=== PATIENT | male | born 1965 | race Caucasian/White ===

== ENCOUNTER → 2022-06-13 | Outpatient (CLI) | payer OTHER ==
--- NOTE | 2022-06-13 15:47 | P.SLEEP ---
History of Present Illness DATE: 06/13/2022 CONSULTATION/NEW PATIENT EVALUATION HISTORY OF PRESENT ILLNESS/SLEEP-WAKE EVALUATION: 56 year old gentleman had been evaluated in the sleep center for possible obstructive sleep apnea hypopnea syndrome. SLEEP SCHEDULE: Usually sleep schedule from 11 PM to 6 AM on weekdays and from 1112 PM until 78 AM on weekend. FALLING ASLEEP: No problems with falling asleep, no TV in bedroom. DURING SLEEP: Patient has loud snoring and wakes up from sleep 2 times. He sleeps on the side and stomach position, prefers not to sleep on the back, feel uncomfortable on the back. No history of hypnogogical hallucinations, sleep paralysis, or cataplexy. DURING THE DAY/WAKE STATE: Patient denies significant sleepiness. [place] sleepiness scale is normal 4. Patient doesn't take naps. PAST MEDICAL HISTORY: Seasonal ALLERGY, ALLERGIC rhinitis. PAST SURGICAL HISTORY: Bilateral cataract surgery at age of 45, right wrist surgery, vasectomy. MEDICATIONS: Aspirin, fluticasone. SOCIAL HISTORY: Positive for smoking for about 5 years half pack a day quit 2002, alcohol consumption occasional. FAMILY HISTORY: Hypertension, stroke, heart problems. REVIEW OF SYSTEMS: Loud snoring, awakenings from sleep. No fevers. No double vision. No recent chest pain. No shortness of breath. No abdominal pain. No bleeding episodes. No blood in urine. No seizure episodes. PHYSICAL EXAMINATION: GENERAL: A pleasant patient without any distress. VITAL SIGNS: BP 149/99, HR 98, RR 16, weight 216.0 pounds, height 6 foot 1 inches, body mass index 28.4. HEENT: PERRLA, EOMI. Evaluation of oropharynx showed tongue protrudes midline, low position of soft palate Mallampati 2-3. NECK: Supple. No JVD. Thyroid is not palpable. 16 inches in circumference. LUNGS: Clear to percussion and to auscultation. Good air exchange. No wheezing or rhonchi. HEART: S1, S2 regular. No murmurs, gallops or rubs. ABDOMEN: Soft and nontender. Bowel sounds are present. No organomegaly appreciated. EXTREMITIES: No clubbing or cyanosis. [employer]: Awake, alert, and oriented x3. Cranial nerves 2 to 7 intact. There is no fasciculation or atrophy noted. No focal deficits observed. ASSESSMENT: 1. Loud snoring, multiple awakenings from sleep, possible obstructive sleep apnea hypopnea syndrome. 2. Seasonal ALLERGY. 3. ALLERGIC rhinitis. 4. Hypertension in the office today. 5 status post bilateral cataract surgery at age of 45. 6 . Status post right wrist surgery. 7. Status post was ectomy. PLAN: 1. Polysomnography for evaluation of patient's breathing during sleep. 2. CPAP/BiPAP titration if sleep study confirms obstructive sleep apnea- hypopnea syndrome. 3. Preferable position during sleep on the side. 4. No driving if patient feels any sleepiness. Patient is aware of civil and criminal liability for unsafe driving. 5. Sleep hygiene with regular sleep time for at least 7.5-8 hours. 6. Watching weight. Thank you very much for referring this patient for consultation. Sincerely, Momo Huang MD, PhD, FAASM. Diplomat of [place] [employer], Sleep Medicine Board by [place] [employer] [place] [employer] Care Team Assistant of [facility] [place] [facility] Note - Sleep Note Sleep Note: Temperature: Pulse Rate: Respiratory Rate: Blood Pressure: SpO2: Height: Weight: BMI: Neck Circumference:
== END ==
LOC: SLEEP 15:13
PROVIDERS: ATTEND Internal Medicine
DX: I10 Essential (primary) hypertension (principal); Z98.890 Other specified postprocedural states; J30.9 Allergic rhinitis, unspecified
CPT/HCPCS: 99211